=== PATIENT | female | born 1970 ===

== ENCOUNTER 2018-08-30 08:23 | Outpatient (CLI) | payer OTHER ==
[~2018-08-30] VITALS: Ht 154.9 cm; Wt 107.0 kg
== END 2018-08-30 08:40 | disposition home or self-care (01) ==
LOC: OFIC 805 08:23
DX: R09.81 Nasal congestion (principal); J30.89 Other allergic rhinitis; G44.89 Other headache syndrome; H10.13 Acute atopic conjunctivitis, bilateral; G43.809 Other migraine, not intractable, without status migrainosus; M62.838 Other muscle spasm